=== PATIENT | male | born 1955 | race Caucasian/White ===

== ENCOUNTER 2020-04-19 09:49 | Outpatient (CLI) | payer MEDICARE, SELFPAY ==
[2020-04-19 10:18] LABS: Hematocrit 40.5 % (42.0-52.0); Hemoglobin 13.1 g/dL (14.0-18.0); Mean Corpuscular HGB Conc 32.3 g/dl (32-36); Mean Platelet Volume 9.2 fl (7.4-10.4); Platelet Count Result 203 k/mm3 (150-375); Red Blood Count 4.22 M/mm3 (4.6-6.20); Red Cell Distribution Width 12.1 % (11.5-14.5); White Blood Count 8.8 K/mm3 (4.5-10.0)
[2020-04-19 10:30] LABS: Cholesterol 120 mg/dL (0-200); HDL Direct 55 mg/dL; Triglycerides 122 mg/dL (<150)
[2020-04-19 10:41] LABS: LDL Cholesterol Direct 36 mg/dL
[2020-04-19 10:47] LABS: Creatinine Urine 216.3 mg/dL
[2020-04-19 10:52] LABS: MALB Creatinine Ratio 5.5 mg/g (0-30); Microalbumin Urine Random 11.8 mg/L (0-16.7)
[2020-04-19 11:00] LABS: Prostate Specific Antigen 0.5 ng/mL (< OR = 4.0); Thyroid Stimulating Hormone 0.871 uIU/mL (0.465-4.680)
[2020-04-19 17:31] LABS: Alanine Aminotransferase 15 U/L (4-50); Albumin Level 4.7 g/dL (3.5-5.1); Alkaline Phosphatase 67 U/L (38-126); Anion Gap 7 mmol/L (8-16); Aspartate Amino Transferase 34 U/L (17-59); Bilirubin,Total 0.5 mg/dL (0.2-1.3); Blood Urea Nitrogen 15 mg/dL (9-20); Calcium 9.5 mg/dL (8.4-10.2); Carbon Dioxide 33 mmol/L (22-30); Chloride 103 mmol/L (98-107); Estimated Glomerular Filt Rate > 60; Glucose 114 mg/dL (75-110); Potassium 4.6 mmol/L (3.4-5.0); Sodium 143 mmol/L (137-145)
[2020-04-19 17:35] LABS: Hemoglobin A1C 6.2 % (<5.7)
== END 2020-04-19 17:00 | disposition home or self-care (01) ==
PROVIDERS: PCP Physician Assistant; Visit Provider Physician Assistant
DX: R53.83 Other fatigue (principal); Z12.5 Encounter for screening for malignant neoplasm of prostate; E11.9 Type 2 diabetes mellitus without complications
CPT/HCPCS: 36415; 80053; 80061; 82043; 83036; 84153; 84443; 85027; G0103

== ENCOUNTER 2021-06-13 10:38 | Outpatient (CLI) | payer MEDICARE, SELFPAY ==
--- NOTE | ~2021-06-13 | MR_ITS ---
EXAMINATION: MR lumbar spine wo con DATE: 06/13/2021 11:16 INDICATION: Low back pain TECHNIQUE: Magnetic resonance imaging (MRI) of the lumbar spine was performed without intravenous con trast. Sequences included sagittal T2-weighted FSE, sagittal T2-weighted FS FSE, sagittal T1-weighted FSE, and axial T2-weighted FSE. COMPARISON: 03/19/2018 FINDINGS: Alignment is normal. Vertebral body heights are normal. Mild fibrofatty degenerative endplate changes along the inferior endplates of L4 and L5. Bone marrow signal is otherwise normal. No significant in terval change in mild to moderate disc height loss and annular fissure at L5-S1. Remaining disc heigh ts are normal. The conus medullaris terminates at L1-L2. There is normal signal in the caudal spinal cord. Paravertebral soft tissues are unremarkable. The following disc levels are specifically discuss ed: T12-L1: The disc does not extend beyond the endplate margin. There is left and mild to moderate right facet joint osteoarthritis. There is no neural foraminal stenosis. There is no central canal stenosi s. L1-L2: The disc does not extend beyond the endplate margin. There is mild to moderate bilateral facet joint osteoarthritis. There is no neural foraminal stenosis. There is no central canal stenosis. L2-L3: Disc is minimally bulging. There is mild left and mild to moderate right facet joint osteoarth ritis. There is no neural foraminal stenosis. There is no central canal stenosis. L3-L4: Disc is mildly bulging. There is mild to moderate bilateral facet joint osteoarthritis. There is mild left neural foraminal stenosis. There is no central canal stenosis. L4-L5: Disc is bulging. There is hypertrophy of the ligamentum flavum. There is moderate bilateral f acet joint osteoarthritis. There is mild right and mild to moderate left neural foraminal stenosis. T here is mild central canal stenosis. L5-S1: Disc is bulging. There is moderate left and severe right facet joint osteoarthritis. There is mild left and moderate right neural foraminal stenosis. There is mild central canal stenosis. IMPRESSION: 1. Minimal progression mild upper and moderate lower lumbar spondylosis. Reviewed, dictated and finalized at location A.
== END 2021-06-13 10:39 | disposition home or self-care (01) ==
LOC: ANHIMG 10:40
PROVIDERS: PCP Physician Assistant; Visit Provider Physician Assistant
DX: M54.50 Low back pain, unspecified (principal); M47.896 Other spondylosis, lumbar region
CPT/HCPCS: 72148

== ENCOUNTER 2021-08-11 08:55 | Outpatient (CLI) | payer MEDICARE, SELFPAY ==
--- NOTE | ~2021-08-11 | XR_ITS ---
EXAMINATION: XR lumbar spine 2-3V DATE: 08/11/2021 09:39 INDICATION: Low back pain TECHNIQUE: Anteroposterior and lateral views of the lumbar spine, and cone-down lateral view of the l umbosacral junction were obtained. COMPARISON: MRI, 06/13/2021 FINDINGS: There is no fracture, dislocation, or subluxation. The vertebral body heights are maintaine d. There is moderate loss of intervertebral disc space height at L5-S1. There is severe facet osteoar thritis of the lower lumbar spine. Calcified atherosclerosis is noted. IMPRESSION: 1. Moderate lower lumbar spondylosis without acute findings or significant interval change. Reviewed, dictated and finalized at location A. IMPRESSION: 1. Moderate lower lumbar spondylosis without acute findings or significant inte rval change.
--- NOTE | ~2021-08-11 | XR_ITS ---
XR thoracic spine 3V DATE: 08/11/2021 09:39 INDICATION: Back pain since trailer fell on the patient in 1992 TECHNIQUE: AP, lateral, swimmer views COMPARISON: 11/09/2014 MR thoracic spine FINDINGS: Diffuse osteopenia. There are mild anterior wedge compression fracture deformities, likely old, at T3, T4, T5, T6 and T7. The thoracic pedicles are intact. No recent fracture or bone destruction is evident. There is degener ative spurring of the thoracic spine, most prominent on the right at T9-10. No paraspinal soft tissue thickening. Status post sternotomy. IMPRESSION: Multiple likely old compression fractures of the upper to mid thoracic spine Osteopenia Degenerative spurring Reviewed, dictated and finalized at location B. IMPRESSION: Multiple likely old compression fractures of the upper to mid thora cic spine Osteopenia Degenerative spurring
--- NOTE | ~2021-08-11 | XR_ITS ---
XR_CERV2-3V_CR DATE: 08/11/2021 09:39 INDICATION: Pain in neck and back since trailer fell on the patient in 1992 TECHNIQUE: AP, open-mouth and lateral views COMPARISON: None FINDINGS: Status post sternotomy. Diffuse osteopenia. C1 and C2 are normally aligned and the odontoid process is intact. 1.2 mm anterolisthesis at C3-4. Mild degenerative disc disease at C4-5. Anterior fusion at C5-6. Moderate degenerative disease at C6-7. No fracture or dislocation, locked facet or prevertebral soft tissue swelling is evident. Normal sella turcica. Calcified is noted in the region of bilateral carotid bulbs, proximal internal carotid arteries. IMPRESSION: Osteopenia Status post anterior fusion at C5-6 Moderate degenerative disc disease at C4-5 and C6-7 1.2 mm anterolisthesis at C3-4 Reviewed, dictated and finalized at Location A. Reviewed, dictated and finalized at location B.
== END 2021-08-11 08:56 | disposition home or self-care (01) ==
LOC: CHSIMG 08:59
PROVIDERS: PCP Physician Assistant; Visit Provider Pain Medicine Interventional Pain Medicine
DX: M54.16 Radiculopathy, lumbar region (principal); M54.14 Radiculopathy, thoracic region; M54.12 Radiculopathy, cervical region; G89.4 Chronic pain syndrome
CPT/HCPCS: 72040; 72072; 72100

== ENCOUNTER 2021-11-22 08:41 | Outpatient (CLI) | payer MEDICARE, SELFPAY ==
[2021-11-22 08:53] LABS: Basophils Absolute Auto 0.03 K/mm3 (0.00-0.10); Basophils Percent Auto 0.5 % (0.0-1.0); Eosinophils Absolute Auto 0.16 K/mm3 (0.02-0.50); Eosinophils Percent Auto 2.4 % (1.0-6.0); Hematocrit 38.5 % (37.0-46.0); Hemoglobin 12.7 g/dL (12.4-15.3); Immature Granulocyte Absolute 0.04 K/mm3 (0.00-0.00); Immature Granulocyte Percent A 0.6 % (0.0-0.0); Lymphocytes Absolute Auto 2.31 K/mm3 (1.10-4.50); Lymphocytes Percent Auto 35.1 % (18.0-42.0); Mean Corpuscular Hemoglobin 31.5 pg (27.0-31.0); Mean Corpuscular Volume 95.5 fL (78.0-102.0); Mean Platelet Volume 9.4 fl (8.7-11.0); Monocytes Absolute Auto 0.65 K/mm3 (0.10-0.90); Monocytes Percent Auto 9.9 % (2.0-11.0); Neutrophils Absolute Auto 3.4 K/mm3 (1.7-7.2); Neutrophils Percent Auto 51.5 % (50.0-70.0); Platelet Count Result 180 K/mm3 (150-420); Red Blood Count 4.03 M/mm3 (4.70-6.10); Red Cell Distribution Width 12.5 % (11.6-14.4); White Blood Count 6.6 K/mm3 (4.8-10.8)
[2021-11-22 09:01] LABS: Creatinine Urine 185.74 mg/dL (40-278); MALB Creatinine Ratio 8.7 mg/g (0-30); Microalbumin Urine Random 16.2 mg/L
[2021-11-22 09:03] LABS: Hemoglobin A1C 6.3 % (<5.7)
[2021-11-22 09:51] LABS: Alanine Aminotransferase 23 U/L (16-63); Alkaline Phosphatase 73 U/L (46-116); Anion Gap 4 mmol/L (8-16); Aspartate Amino Transferase 16 U/L (15-37); Bilirubin,Total 0.4 mg/dL (0.00-1.00); Blood Urea Nitrogen 19 mg/dL (7-18); Calcium 8.7 mg/dL (8.5-10.1); Carbon Dioxide 31 mmol/L (21-32); Chloride 103 mmol/L (98-108); Cholesterol 197 mg/dL (0-200); Estimated Glomerular Filt Rate > 60; Folic Acid 19.8 ng/mL (8.6->20); Glucose 119 mg/dL (70-99); HDL Direct 71 mg/dL (40-60); LDL Cholesterol Calculated 116 mg/dL (<130); Osmolality Calculated 289 mOsm/kg (285-295); Potassium 4.7 mmol/L (3.5-5.1); Prostate Specific Antigen 0.6 ng/mL (< OR = 4.0); Sodium 138 mmol/L (136-145); Thyroid Stimulating Hormone 0.97 uIU/mL (0.36-3.74); Total Protein 7.5 g/dL (6.4-8.2); Triglycerides 49 mg/dL (0-150); Vitamin B12 191 pg/mL (193-986)
== END 2021-11-22 08:42 | disposition home or self-care (01) ==
LOC: CHSLAB 08:43
PROVIDERS: PCP Physician Assistant; Visit Provider Physician Assistant
DX: R53.83 Other fatigue (principal); E11.9 Type 2 diabetes mellitus without complications; E78.00 Pure hypercholesterolemia, unspecified; Z12.5 Encounter for screening for malignant neoplasm of prostate
CPT/HCPCS: 36415; 80053; 80061; 82043; 82607; 82746; 83036; 84153; 84443; 85025; G0103

== ENCOUNTER 2022-04-09 09:57 | Outpatient (CLI) | payer MEDICARE, SELFPAY ==
--- NOTE | ~2022-04-09 | XR_ITS ---
EXAMINATION:XR_CERV2-3V_CR DATE: 04/09/2022 10:22 INDICATION: Neck pain TECHNIQUE: AP, lateral, and odontoid views of the cervical spine are provided. COMPARISON: 08/11/2021 FINDINGS: There is 1 mm of unchanged anterolisthesis of C3 on C4. The odontoid is intact. No fracture is identified. The vertebral body heights are normal. There are changes of anterior fusion at C5-6. There is moderate loss of intervertebral disc space height at C4-5 and C6-7. Xpzt-ks-jqprgwjd multile katy facet and uncovertebral joint osteoarthritis is noted. Median sternotomy wires and mediastinal alcantara rgical clips are seen, likely from prior coronary artery bypass grafting. Surgical clips project in t he left lung apex. IMPRESSION: 1. Changes of anterior fusion at C5-C6 with otherwise mild cervical spondylosis. No significant díaz e. Reviewed, dictated and finalized at location B. ENT AMBASSADOR IMPRESSION: 1. Changes of anterior fusion at C5-C6 with otherwise mild cervical spondylosis . No significant change.
== END 2022-04-09 09:58 | disposition home or self-care (01) ==
LOC: CHSIMG 10:00
PROVIDERS: PCP Physician Assistant; Visit Provider Pain Medicine Interventional Pain Medicine
DX: M54.12 Radiculopathy, cervical region (principal); Z98.1 Arthrodesis status; M43.02 Spondylolysis, cervical region
CPT/HCPCS: 72040

== ENCOUNTER 2022-06-18 08:29 | Outpatient (CLI) | payer MEDICARE, SELFPAY ==
[2022-06-18 09:02] LABS: Creatinine Urine 111.73 mg/dL (40-278); MALB Creatinine Ratio 11.6 mg/g (0-30); Microalbumin Urine Random < 13.0 mg/L
[2022-06-18 09:04] LABS: Hemoglobin A1C 6.1 % (<5.7)
[2022-06-18 09:31] LABS: Anion Gap 7 mmol/L (8-16); Blood Urea Nitrogen 16 mg/dL (7-18); Calcium 8.4 mg/dL (8.5-10.1); Carbon Dioxide 32 mmol/L (21-32); Chloride 104 mmol/L (98-108); Cholesterol 178 mg/dL (0-200); Estimated Glomerular Filt Rate > 60; Glucose 106 mg/dL (70-99); HDL Direct 62 mg/dL (40-60); LDL Cholesterol Calculated 95 mg/dL (<130); NT Pro B Type Natriuretic Pept 130 pg/mL (0-125); Osmolality Calculated 297 mOsm/kg (285-295); Potassium 4.1 mmol/L (3.5-5.1); Sodium 143 mmol/L (136-145); Triglycerides 103 mg/dL (0-150)
[2022-06-22 19:57] LABS: CRP, High Sensitivity 1.7 mg/L (***)
== END 2022-06-18 08:30 | disposition home or self-care (01) ==
LOC: CHSLAB 08:32
PROVIDERS: PCP Physician Assistant; Visit Provider Internal Medicine Cardiovascular Disease
DX: E11.9 Type 2 diabetes mellitus without complications (principal); I70.8 Atherosclerosis of other arteries; Z82.3 Family history of stroke; Z95.5 Presence of coronary angioplasty implant and graft; I25.810 Atherosclerosis of coronary artery bypass graft(s) without angina pectoris; I35.1 Nonrheumatic aortic (valve) insufficiency; I87.2 Venous insufficiency (chronic) (peripheral); I25.10 Atherosclerotic heart disease of native coronary artery without angina pectoris; E78.5 Hyperlipidemia, unspecified; I89.0 Lymphedema, not elsewhere classified; R60.0 Localized edema; I10 Essential (primary) hypertension; R06.02 Shortness of breath; R00.2 Palpitations
CPT/HCPCS: 36415; 80048; 80061; 82043; 83036; 83880; 86141

== ENCOUNTER 2022-08-07 10:19 | Outpatient (CLI) | payer MEDICARE, SELFPAY ==
--- NOTE | ~2022-08-07 | XR_ITS ---
Thoracic spine: Clinical Indication: Back pain AP and lateral views were performed. COMPARISON: 08/11/2021 There are compression deformities of T6 and T7. No subluxation evident. There are scattered mild dege nerative disc changes throughout the thoracic spine. Paravertebral soft tissues appear normal. Impression: Compression deformities of T6 and T7, probably similar to prior exam. Reviewed, dictated and finalized at location . Impression: Compression deformities of T6 and T7, probably similar to prior exam.
--- NOTE | ~2022-08-07 | XR_ITS ---
Cervical Spine: AP, lateral, open-mouth views Clinical History: Pain Findings: The normal lordotic curve is maintained. No fracture or subluxation identified. There is mo derate degenerative disc change at C4-C5. There is fusion across the C5-C6 disc space. There is moder ate facet arthropathy throughout most of the cervical spine. Pre-vertebral soft tissues are unremarka ble. Impression: Moderate degenerative spondylosis, as above. Reviewed, dictated and finalized at location M. Impression: Moderate degenerative spondylosis, as above.
--- NOTE | ~2022-08-07 | XR_ITS ---
Lumbosacral Spine: AP and lateral views Clinical History: Pain COMPARISON: 08/11/2021 Findings: The normal lordotic curve is maintained. No fracture identified. There is minimal grade 1 a nterolisthesis of L4 over L5, similar to prior exam. There is moderate facet arthropathy at L4-L5 and L5-S1. The sacroiliac joints are normally outlined. Impression: Minimal grade 1 anterolisthesis of L4 over L5, unchanged. Mild degenerative changes, similar to prior exam. Reviewed, dictated and finalized at location M. Impression: Minimal grade 1 anterolisthesis of L4 over L5, unchanged. Mild degenerative changes, similar to prior exam.
== END 2022-08-07 10:20 | disposition home or self-care (01) ==
LOC: CHSIMG 10:22
PROVIDERS: PCP Physician Assistant; Visit Provider Pain Medicine Interventional Pain Medicine
DX: M25.569 Pain in unspecified knee (principal); M54.14 Radiculopathy, thoracic region; M54.12 Radiculopathy, cervical region; M43.16 Spondylolisthesis, lumbar region; M48.54XA Collapsed vertebra, not elsewhere classified, thoracic region, initial encounter for fracture; M43.02 Spondylolysis, cervical region
CPT/HCPCS: 72040; 72072; 72100

== ENCOUNTER 2022-10-19 07:44 | Outpatient (CLI) | payer MEDICARE, SELFPAY ==
[2022-10-19 08:01] LABS: Basophils Absolute Auto 0.03 K/mm3 (0.00-0.10); Basophils Percent Auto 0.5 % (0.0-1.0); Eosinophils Absolute Auto 0.17 K/mm3 (0.02-0.50); Hematocrit 37.9 % (37.0-46.0); Hemoglobin 12.5 g/dL (12.4-15.3); Immature Granulocyte Absolute 0.03 K/mm3 (0.00-0.00); Immature Granulocyte Percent A 0.5 % (0.0-0.0); Lymphocytes Absolute Auto 2.56 K/mm3 (1.10-4.50); Lymphocytes Percent Auto 45.6 % (18.0-42.0); Mean Corpuscular Hemoglobin 31.6 pg (27.0-31.0); Mean Corpuscular Volume 95.9 fL (78.0-102.0); Mean Platelet Volume 9.3 fl (8.7-11.0); Monocytes Absolute Auto 0.55 K/mm3 (0.10-0.90); Monocytes Percent Auto 9.8 % (2.0-11.0); Neutrophils Absolute Auto 2.3 K/mm3 (1.7-7.2); Neutrophils Percent Auto 40.6 % (50.0-70.0); Platelet Count Result 182 K/mm3 (150-420); Red Blood Count 3.95 M/mm3 (4.70-6.10); Red Cell Distribution Width 12.6 % (11.6-14.4); White Blood Count 5.6 K/mm3 (4.8-10.8)
[2022-10-19 08:15] LABS: INR 0.9; Prothrombin Time 10.2 Seconds (9.50-12.10)
[2022-10-19 08:33] LABS: Anion Gap 7 mmol/L (8-16); Blood Urea Nitrogen 12 mg/dL (7-18); Calcium 8.5 mg/dL (8.5-10.1); Carbon Dioxide 31 mmol/L (21-32); Chloride 104 mmol/L (98-108); Cholesterol 211 mg/dL (0-200); Estimated Glomerular Filt Rate > 60; Glucose 99 mg/dL (70-99); HDL Direct 56 mg/dL (40-60); LDL Cholesterol Calculated 122 mg/dL (<130); Osmolality Calculated 293 mOsm/kg (285-295); Potassium 4.6 mmol/L (3.5-5.1); Sodium 142 mmol/L (136-145); Triglycerides 166 mg/dL (0-150)
== END 2022-10-19 07:45 | disposition home or self-care (01) ==
LOC: CHSLAB 07:47
PROVIDERS: PCP Physician Assistant; Visit Provider Internal Medicine Cardiovascular Disease
DX: I25.810 Atherosclerosis of coronary artery bypass graft(s) without angina pectoris (principal); I87.2 Venous insufficiency (chronic) (peripheral); E78.5 Hyperlipidemia, unspecified; I35.1 Nonrheumatic aortic (valve) insufficiency; I10 Essential (primary) hypertension
CPT/HCPCS: 36415; 80048; 80061; 85025; 85610

== ENCOUNTER 2022-12-26 08:13 | Outpatient (CLI) | payer MEDICARE, SELFPAY ==
[2022-12-26 08:25] LABS: Basophils Absolute Auto 0.02 K/mm3 (0.00-0.10); Basophils Percent Auto 0.3 % (0.0-1.0); Eosinophils Absolute Auto 0.11 K/mm3 (0.02-0.50); Eosinophils Percent Auto 1.7 % (1.0-6.0); Hematocrit 40.4 % (37.0-46.0); Hemoglobin 13.2 g/dL (12.4-15.3); Immature Granulocyte Absolute 0.03 K/mm3 (0.00-0.00); Immature Granulocyte Percent A 0.5 % (0.0-0.0); Lymphocytes Absolute Auto 2.57 K/mm3 (1.10-4.50); Mean Corpuscular HGB Conc 32.7 g/dL (32.0-36.0); Mean Corpuscular Hemoglobin 31.3 pg (27.0-31.0); Mean Corpuscular Volume 95.7 fL (78.0-102.0); Mean Platelet Volume 9.2 fl (8.7-11.0); Monocytes Absolute Auto 0.59 K/mm3 (0.10-0.90); Monocytes Percent Auto 9.2 % (2.0-11.0); Neutrophils Absolute Auto 3.1 K/mm3 (1.7-7.2); Neutrophils Percent Auto 48.3 % (50.0-70.0); Platelet Count Result 170 K/mm3 (150-420); Red Blood Count 4.22 M/mm3 (4.70-6.10); Red Cell Distribution Width 12.4 % (11.6-14.4); White Blood Count 6.4 K/mm3 (4.8-10.8)
[2022-12-26 08:40] LABS: Hemoglobin A1C 6.2 % (<5.7)
[2022-12-26 09:24] LABS: Alanine Aminotransferase 13 U/L (16-63); Albumin Level 4.3 g/dL (3.4-5.0); Alkaline Phosphatase 62 U/L (46-116); Anion Gap 10 mmol/L (8-16); Aspartate Amino Transferase < 10 U/L (15-37); Bilirubin,Total 0.4 mg/dL (0.00-1.00); Blood Urea Nitrogen 14 mg/dL (7-18); Calcium 9.1 mg/dL (8.5-10.1); Carbon Dioxide 29 mmol/L (21-32); Chloride 105 mmol/L (98-108); Cholesterol 205 mg/dL (0-200); Estimated Glomerular Filt Rate > 60; Folic Acid 15.8 ng/mL (8.6->20); Glucose 106 mg/dL (70-99); HDL Direct 63 mg/dL (40-60); LDL Cholesterol Calculated 112 mg/dL (<130); Osmolality Calculated 298 mOsm/kg (285-295); Potassium 4.5 mmol/L (3.5-5.1); Prostate Specific Antigen 0.6 ng/mL (< OR = 4.0); Sodium 144 mmol/L (136-145); Thyroid Stimulating Hormone 1.23 uIU/mL (0.36-3.74); Total Protein 7.4 g/dL (6.4-8.2); Triglycerides 149 mg/dL (0-150)
[2022-12-26 10:05] LABS: Vitamin B12 121 pg/mL (193-986)
== END 2022-12-26 08:14 | disposition home or self-care (01) ==
LOC: CHSLAB 08:14
PROVIDERS: PCP Physician Assistant; Visit Provider Physician Assistant
DX: E78.00 Pure hypercholesterolemia, unspecified (principal); E11.9 Type 2 diabetes mellitus without complications; E53.8 Deficiency of other specified B group vitamins; Z12.5 Encounter for screening for malignant neoplasm of prostate; R53.83 Other fatigue
CPT/HCPCS: 36415; 80053; 80061; 82607; 82746; 83036; 84153; 84443; 85025; G0103

== ENCOUNTER 2023-05-01 07:02 | Outpatient (CLI) | payer MEDICARE, SELFPAY ==
[2023-05-01 08:15] LABS: Anion Gap 10 mmol/L (8-16); Blood Urea Nitrogen 17 mg/dL (7-18); Calcium 8.4 mg/dL (8.5-10.1); Carbon Dioxide 29 mmol/L (21-32); Chloride 102 mmol/L (98-108); Estimated Glomerular Filt Rate 56; Glucose 122 mg/dL (70-99); Osmolality Calculated 294 mOsm/kg (285-295); Potassium 4.4 mmol/L (3.5-5.1); Sodium 141 mmol/L (136-145)
== END 2023-05-01 07:03 | disposition home or self-care (01) ==
LOC: CHSLAB 07:07
PROVIDERS: PCP Physician Assistant
DX: I34.0 Nonrheumatic mitral (valve) insufficiency (principal)
CPT/HCPCS: 36415; 80048

== ENCOUNTER 2023-08-08 08:43 | Outpatient (CLI) | payer MEDICARE, SELFPAY ==
--- NOTE | ~2023-08-08 | XR_ITS ---
Lumbosacral Spine: AP and lateral views Clinical History: Pain Findings: The normal lordotic curve is maintained. The vertebral bodies and posterior elements are i ntact. The intervertebral disc spaces are preserved. There is advanced facet arthropathy at L4-L5 an d L5-S1. The sacroiliac joints are normally outlined. Impression: Facet arthropathy at the lower lumbar spine, as detailed above. Reviewed, dictated and finalized at location M. Impression: Facet arthropathy at the lower lumbar spine, as detailed above.
--- NOTE | ~2023-08-08 | XR_ITS ---
Thoracic spine: Clinical Indication: Radiculopathy AP and lateral views were performed. Probable minimal wedging deformities of T5. There is normal alignment of the vertebrae. There is mil d to moderate degenerative disc narrowing throughout the thoracic spine. There is mild to moderate fa cet arthropathy in the thoracic spine. Paravertebral soft tissues are unremarkable. Evidence of cardi ac valve replacement. . Impression: [id number] degenerative spondylosis of the thoracic spine, as above. Minimal anterior wedging deformity of T5. Reviewed, dictated and finalized at location M. Impression: Fndi-tn-[id number] degenerative spondylosis of the thoracic spine, as above. Minimal anterior wedging deformity of T5.
== END 2023-08-08 08:44 | disposition home or self-care (01) ==
LOC: CHSIMG 08:46
PROVIDERS: PCP Internal Medicine; Visit Provider Pain Medicine Interventional Pain Medicine
DX: M54.17 Radiculopathy, lumbosacral region (principal); M54.14 Radiculopathy, thoracic region; M12.88 Other specific arthropathies, not elsewhere classified, other specified site; M43.04 Spondylolysis, thoracic region; M48.54XA Collapsed vertebra, not elsewhere classified, thoracic region, initial encounter for fracture
CPT/HCPCS: 72072; 72100

== ENCOUNTER 2023-08-13 09:53 | Outpatient (CLI) | payer MEDICARE, SELFPAY ==
[2023-08-13 10:23] LABS: Basophils Absolute Auto 0.03 K/mm3 (0.00-0.10); Basophils Percent Auto 0.4 % (0.0-1.0); Eosinophils Percent Auto 1.4 % (1.0-6.0); Hemoglobin 11.5 g/dL (12.4-15.3); Immature Granulocyte Absolute 0.05 K/mm3 (0.00-0.00); Immature Granulocyte Percent A 0.7 % (0.0-0.0); Lymphocytes Percent Auto 35.4 % (18.0-42.0); Mean Corpuscular HGB Conc 30.3 g/dL (32-36); Mean Corpuscular Volume 89.2 fL (78.0-102.0); Mean Platelet Volume 9.1 fl (8.7-11.0); Monocytes Absolute Auto 0.52 K/mm3 (0.10-0.90); Monocytes Percent Auto 7.4 % (2.0-11.0); Neutrophils Absolute Auto 3.86 K/mm3 (1.70-7.20); Neutrophils Percent Auto 54.7 % (50.0-70.0); Platelet Count Result 129 K/mm3 (150-420); Red Blood Count 4.26 M/mm3 (4.70-6.10); Red Cell Distribution Width 15.9 % (11.6-14.4); White Blood Count 7.1 K/mm3 (4.8-10.8)
[2023-08-13 11:58] LABS: Alanine Aminotransferase 44 U/L (16-63); Albumin Level 3.7 g/dL (3.4-5.0); Alkaline Phosphatase 148 U/L (46-116); Anion Gap 9 mmol/L (4-12); Aspartate Amino Transferase 29 U/L (15-37); Bilirubin,Total 0.5 mg/dL (0.00-1.00); Blood Urea Nitrogen 27 mg/dL (7-18); Calcium 8.6 mg/dL (8.5-10.1); Carbon Dioxide 31 mmol/L (21-32); Chloride 97 mmol/L (98-108); Estimated Glomerular Filt Rate 46; Glucose 113 mg/dL (70-99); Osmolality Calculated 290 mOsm/kg (285-295); Potassium 4.4 mmol/L (3.5-5.1); Sodium 137 mmol/L (136-145); Total Protein 7.5 g/dL (6.4-8.2); Vitamin B12 249 pg/mL (193-986)
== END 2023-08-13 09:54 | disposition home or self-care (01) ==
LOC: CHSLAB 09:54
PROVIDERS: PCP Internal Medicine; Visit Provider Internal Medicine
DX: E78.00 Pure hypercholesterolemia, unspecified (principal); E53.8 Deficiency of other specified B group vitamins; E08.42 Diabetes mellitus due to underlying condition with diabetic polyneuropathy
CPT/HCPCS: 36415; 80053; 82607; 83036; 85025

== ENCOUNTER 2024-03-11 08:01 | Outpatient (CLI) | payer MEDICARE, MEDICAID, SELFPAY ==
--- NOTE | ~2024-03-11 | XR_ITS ---
XR chest 2V Ordering provider: Giovanni Caceres DO History: 69 years Male with . CHEST TIGHTNESS,CONGESTION,THOMPSON,ACUTE . Comparison: May 19, 2013 FINDINGS: MEDIASTINUM: The cardiac silhouette is not enlarged. Postoperative changes in the mediastinum. LUNGS: No pneumothorax. Soft tissue density is seen in the right upper lobe laterally which is pleura l-based and may represent a mass. CT evaluation advised. Minimal right pleural effusion. Minimal opac ification in the right lung base and in the left perihilar and left lower lobe areas. Small granuloma in the right upper lobe unchanged. OTHER: No free air under the diaphragm. Degenerative changes of the spine. IMPRESSION: Possible pleural-based mass in the right upper lobe. CT evaluation advised. Left perihilar and bibasilar opacification suggestive of pneumonia. Clinical correlation advised. Reviewed, dictated and finalized at location A. PLANT OPERATOR IMPRESSION: Possible pleural-based mass in the right upper lobe. CT evaluation advised. Left perihilar and bibasilar opacification suggestive of pneumonia. Clinical co rrelation advised.
[2024-03-11 08:22] LABS: Basophils Absolute Auto 0.03 K/mm3 (0.00-0.10); Basophils Percent Auto 0.4 % (0.0-1.0); Eosinophils Absolute Auto 0.11 K/mm3 (0.02-0.50); Eosinophils Percent Auto 1.4 % (1.0-6.0); Hematocrit 36.1 % (37.0-46.0); Hemoglobin 11.4 g/dL (12.4-15.3); Immature Granulocyte Absolute 0.05 K/mm3 (0.00-0.00); Immature Granulocyte Percent A 0.6 % (0.0-0.0); Lymphocytes Absolute Auto 2.43 K/mm3 (1.10-4.50); Lymphocytes Percent Auto 31.2 % (18.0-42.0); Mean Corpuscular HGB Conc 31.6 g/dL (32-36); Mean Corpuscular Hemoglobin 27.6 pg (27.0-31.0); Mean Corpuscular Volume 87.4 fL (78.0-102.0); Mean Platelet Volume 8.6 fl (8.7-11.0); Monocytes Absolute Auto 0.72 K/mm3 (0.10-0.90); Monocytes Percent Auto 9.2 % (2.0-11.0); Neutrophils Absolute Auto 4.45 K/mm3 (1.70-7.20); Neutrophils Percent Auto 57.2 % (50.0-70.0); Platelet Count Result 214 K/mm3 (150-420); Red Blood Count 4.13 M/mm3 (4.70-6.10); Red Cell Distribution Width 14.1 % (11.6-14.4); White Blood Count 7.8 K/mm3 (4.8-10.8)
[2024-03-11 08:35] LABS: Hemoglobin A1C 6.8 % (<5.7)
[2024-03-11 08:46] LABS: Creatinine Urine 162.28 mg/dL (40-278); MALB Creatinine Ratio 33.2 mg/g (0-30); Microalbumin Urine Random 53.9 mg/L
[2024-03-11 09:37] LABS: Alanine Aminotransferase 33 U/L (16-63); Albumin Level 3.2 g/dL (3.4-5.0); Alkaline Phosphatase 213 U/L (46-116); Anion Gap 10 mmol/L (4-12); Aspartate Amino Transferase 30 U/L (15-37); Bilirubin,Total 0.5 mg/dL (0.00-1.00); Blood Urea Nitrogen 16 mg/dL (7-18); Calcium 8.5 mg/dL (8.5-10.1); Carbon Dioxide 29 mmol/L (21-32); Chloride 100 mmol/L (98-108); Cholesterol 120 mg/dL (0-200); Estimated Glomerular Filt Rate 57; Ferritin 288 ng/mL (26-388); Glucose 119 mg/dL (70-99); HDL Direct 50 mg/dL (40-60); Iron 34 ug/dL (65-175); LDL Cholesterol Calculated 56 mg/dL (<130); Osmolality Calculated 290 mOsm/kg (285-295); Percent Iron Saturation 10 % (12-57); Potassium 4.2 mmol/L (3.5-5.1); Sodium 139 mmol/L (136-145); Thyroid Stimulating Hormone 1.98 uIU/mL (0.36-3.74); Total Protein 7.3 g/dL (6.4-8.2); Triglycerides 71 mg/dL (0-150); Vitamin B12 284 pg/mL (193-986)
== END 2024-03-11 08:02 | disposition home or self-care (01) ==
LOC: CHSLAB 08:05
PROVIDERS: PCP Internal Medicine; Visit Provider Internal Medicine
DX: D64.9 Anemia, unspecified (principal); N18.9 Chronic kidney disease, unspecified; R74.8 Abnormal levels of other serum enzymes; E08.42 Diabetes mellitus due to underlying condition with diabetic polyneuropathy; E78.5 Hyperlipidemia, unspecified; Z51.81 Encounter for therapeutic drug level monitoring; E53.8 Deficiency of other specified B group vitamins; R06.09 Other forms of dyspnea
CPT/HCPCS: 36415; 71046; 80053; 80061; 82043; 82607; 82728; 83036; 83540; 83550; 84443; 85025

== ENCOUNTER 2024-03-18 13:08 | Outpatient (CLI) | payer MEDICARE, MEDICAID, SELFPAY ==
--- NOTE | ~2024-03-18 | CT_ITS ---
EXAMINATION:CT chest high resolution wo ma DATE: 03/18/2024 13:31 INDICATION: Midsternal chest pain. TECHNIQUE: Computed tomography (CT) of the chest was performed without intravenous contrast. Automate d exposure control and iterative reconstruction technique were employed. The dose-length product (DLP ) was 150.31 mGy-cm. COMPARISON: Chest 2 views 03/11/2024 FINDINGS: There is mild atelectasis in the lungs. There is a small loculated right pleural effusion w ith pleural thickening. Calcified right lung nodules and calcified right hilar and mediastinal lymph nodes are consistent with old granulomatous disease. The heart size is normal. There are changes of m itral and aortic valve replacements. No pericardial effusion. There are changes of coronary artery by pass grafting. Calcifications in the liver and spleen are consistent with old granulomatous disease. There are old healed right rib fractures. There is mild chronic height loss of multiple vertebral bod ies. There is mild thoracic spondylosis. IMPRESSION: 1. Small loculated right pleural effusion. Reviewed, dictated and finalized at location A. UM TECHNICIAN
== END 2024-03-18 13:09 | disposition home or self-care (01) ==
LOC: CHSIMG 13:10
PROVIDERS: PCP Internal Medicine; Visit Provider Internal Medicine
DX: R91.8 Other nonspecific abnormal finding of lung field (principal); J90 Pleural effusion, not elsewhere classified
CPT/HCPCS: 71250

== ENCOUNTER 2024-10-20 09:56 | Outpatient (CLI) | payer MEDICARE, MEDICAID, SELFPAY ==
--- OUTSIDE RECORDS SUMMARY | 2024-10-20 10:04 | XMS_ITS | Clinical Summary ---
Author Organization [facility] Address [address] [place] [address] Care Team Providers Care Finishing Trimmer Name Role Phone Efrain Bruno Primary Care Provider Edmund Villalba MD Unavailable [phone] Elmer Wiseman MD, Yuri Bird Unavailable [phone] Allergies No known active allergies Medications tamsulosin (FLOMAX) 0.4 mg extended release capsule Take 1 capsule (0.4 mg total) by mouth daily Active aspirin 81 mg enteric coated tablet Take 1 tablet (81 mg total) by mouth daily 5 Active oxyCODONE-acetami nophen (PERCOCET) 5-325 mg per tablet Take 1 tablet by mouth 3 (three) times a day as needed 3 Active ALPRAZolam (XANAX) 0.5 mg tablet Take 1 tablet (0.5 mg total) by mouth nightly 3 Active cyclobenzaprine (FLEXERIL) 10 mg tablet Take 1 tablet (10 mg total) by mouth 2 (two) times a day as needed 3 Active famotidine (PEPCID) 20 mg tablet Take 1 tablet (20 mg total) by mouth 2 (two) times a day Active fluticasone propionate (FLONASE) 50 mcg/actuation nasal spray Administer 2 sprays into each nostril daily as needed 3 Active albuterol HFA (PROVENTIL HFA,VENTOLIN HFA,PROAIR HFA) 90 mcg/actuation inhaler Inhale 2 puffs every 4 (four) hours as needed Active apixaban (ELIQUIS) 5 mg tabletIndications :atrial fibrillation Take 1 tablet (5 mg total) by mouth every 12 (twelve) hours 60 tablet 1 3 Active atorvastatin (LIPITOR) 40 mg tablet Take 1 tablet (40 mg total) by mouth nightly 30 tablet 11 3 Active furosemide (LASIX) 40 mg tablet Take 1 tablet (40 mg total) by mouth daily 30 tablet 3 Active polyethylene glycol (MIRALAX) 17 gram/dose bulk powderIndications :constipation Take 17 g by mouth daily as needed (constipation) 3 Active metoprolol tartrate (LOPRESSOR) 25 mg immediate release tablet Take 0.5 tablets (12.5 mg total) by mouth 2 (two) times a day 30 tablet 1 3 Active Active Problems Problem Noted Date Diagnosed Date Severe mitral regurgitation 03/14/2023 Mitral valve insufficiency 02/12/2023 Low back pain 09/21/2016 Multiple vessel coronary artery disease 03/16/20 14 Encounters Date Type Department Care Team Description 08/11/2024 10:15 AM CDT Office Visit [facility] [address] [place] [phone] Edmund Villalba MD S/P MVR (mitral valve replacement) (Primary Dx) from Last 3 Months Surgical History Surgery Date Site/Laterality Comments ND RPLCMT PROST AORTIC VALVE OPEN XCP HOMOGRF/STENT Aortic Valve Replacement - (Added by Conv) ND ARTHRD ANT INTERBODY MIN DSC CRV BELOW C2 Cervical Vertebral Fusion - (Added by TW Conv) CORONARY ARTERY BYPASS GRAFT Previous Coronary Artery Bypass - (Added by TW Conv) INGUINAL HERNIA REPAIR Inguinal Hernia Repair - (Added by Conv) VARICOSE VEIN SURGERY venoseal Medical History Medical History Date Comments Lymphedema, not elsewhere classified Lymphedema - (Added by TW Conv) Anxiety disorder Anxiety - (Adde d by Conv) Chronic kidney disease CKD 2 Coronary artery disease Hyperlipidemia GERD (gastroesophageal reflux disease) CHF (congestive heart failure) (HCC) Neuropathy Asthma allergies Type 2 diabetes mellitus (HCC) d iet controlled Chronic back pain Hypertension BPH (benign prostatic hyperplasia) Arthritis Family History Medical History Relation Name Comments Heart attack Brother 1 Stroke Brother 1 Family history of cerebrovascular accident (CVA) - (Added by TW Conv) Vision loss Brother 2 drug overdose Heart attack Father Family history of myocardial infarction - (Added by TW Conv) Stroke Mother Family history of cerebrovascular accident (CVA) - (Added by TW Conv) Stroke Other 1 Family history of cerebrovascular accident (CVA) - (Added by TW Conv) Diabetes Other 2 Family history of diabetes mellitus - (Added by TW Conv) Hypertension Other 3 Family history of hypertension - (Added by TW Conv) Heart disease Other 4 Family history of cardiac disorder - (Added by TW Conv) Relation Name Status Comments Brother 1 Brother 2 Father Mother Other 1 Other 2 Other 3 Other 4 Sister Alive Social History Tobacco Use Types Packs/Day Years Used Date Smoking Tobacco: Former Tobacco Cessation:Counseling Given: Not Answered OASIS D0700: Social Isolation Answer Da te Recorded Frequency of experiencing loneliness or isolatio n Never 04/18/2023 OASIS A1250: Transportation Answer Date Recorded Lack of Transportation (Medical) No 04/18/2023 Lack of Transportation (Non-Medical) No 04/18/2023 Patient Unable or Declines to Respond No 04/18/2023 OASIS B1300: Health Literacy Answer Ronaldo e Recorded Frequency of needing help to read materials from doctor or pharmacy Sometimes 04/18/2023 [facility] Utilities Answer Date Recorded In the past 12 months has th e [place], gas, oil, or water [employer] threatened to shut off services in your home? No 03/15/2023 Social Connection and Isolat ion Panel [NHANES] Answer Date Recorded In a typical week, how many times do you talk on the phone with family, friends, or neighbors? More than three times a week 03/15/2023 How often do you get togethe r with friends or relatives? More than three times a week 03/15/2023 How often do you attend chur ch or cheondoism services? Never 03/15/2023 Do you belong to any clubs o r organizations such as spiritism groups, unions, fraternal or athletic groups, or school groups? No 03/15/2023 How often do you attend meet ings of the clubs or organizations you belong to? Never 03/15/2023 Are you , , di vorced, , never , or living with a partner? 03/15/2023 AUDIT-C Answer Date Recorded Frequency of Alcohol Consumption Not on file 03/07/2023 Q2: How many drinks containi ng alcohol do you have on a typical day when you are drinking? Patient does not drink 3 Frequency of Binge Drinking Not on file 09/2022 Overall Financial Resource Strain (CARDIA) Answe r Date Recorded How hard is it for you to pa y for the very basics like food, housing, medical care, and heating? Not hard at all 03/15/2023 Hunger Vital Sign Answer Date Recorded Within the past 12 months, y ou worried that your food would run out before you got the money to buy more. Never true 03/15/20 23 Within the past 12 months, t he food you bought just didn't last and you didn't have money to get more. Never true 03/15/2023 PRAPARE - Transportation Answer Date Re corded In the past 12 months, has l ack of transportation kept you from medical appointments or from getting medications? No 03/01 In the past 12 months, has l ack of transportation kept you from meetings, work, or from getting things needed for daily living? No 03/15/2023 Housing Stability Vital Sign Answer Ronaldo e Recorded In the last 12 months, was t here a time when you were not able to pay the mortgage or rent on time? No 03/15/2023 In the last 12 months, how many places have you lived? 1 03/15/2023 In the last 12 months, was t here a time when you did not have a steady place to sleep or slept in a skilled nursing (including now)? No 03/15/2023 Personal Safety Answer Date Recorded Have you ever been in or are you currently in a harmful physical or emotional relationship or is someone making you feel afraid or unsafe? Denies 03/17/2023 Sex and Gender Information Value Date Recorded Sex Assigned at Not on file Legal Sex Male 10:33 PM SOURCING INTERN Gender Identity Not on file Sexual Orientation Not on file Obstetrics History Last Filed Vital Signs Vital Sign Reading Time Taken Comments Blood Pressure 122/76 08/11/2024 10:40 AM CDT Pulse 56 08/11/2024 10:40 AM CDT Temperature 36.7 C (98 F) 04/18/2023 10:29 AM SOURCING INTERN Respiratory Rate 16 08/11/2024 10:40 AM CDT Oxygen Saturation 96% 08/11/2024 10:40 AM CDT Inhaled Oxygen Concentration - - Weight 68.5 kg (151 lb) 08/11/2024 10:40 AM CDT Height 167.6 cm (5' 6) 08/11/2024 10:40 AM CDT Body Mass Index 24.37 08/11/2024 10:40 AM CDT Plan of Treatment Health Maintenance Due Date Last Done Comments Colon Cancer Screening-Colonoscopy 1955 Depression Screening 1955 Hepatitis C Screening 1955 Prostate Cancer Screening-PSA 1955 DTaP/Tdap/Td Vaccine (1 - Tdap) 1966 Hepatitis B Screening 1973 Pneumococcal vaccine 65+ (1 of 1 - PCV) 2005 Zoster Vaccine (1 of 2) 2005 Abdominal Aortic Aneurysm (AAA) Screen 02/22/2020 Well Visit 65+ 02/22/2020 Fall Risk Assessment 03/21/2024 03/21/2023 Influenza Vaccine (#1) 2024 Medical Devices Implanted Type Area Legal Writing Professor Device Identifier Shelf Expiration Date Model / Serial / Lot [employer] Peripheral V[employer] 4x4in Patch Thk1.65mm [employer] Ptfe Sterile [id number] - [id number] Implanted:Qty: 1 on 03/14/2023 by Edmund Villalba MD at [facility] Other - see comments N/A: Chest [employer] [id number] 01/26/2025 [id number] / / [id number] Description:Orient used to kiera e pledgets for sutures [employer] Valve Coronary Mitral Tissue Bioprosthesis Mitris Resilia 25mm [id number] - [id number] - [id number] Implanted:Qty: 1 on 03/14/2023 by Edmund Villalba MD at [facility] N/A: Heart [employer] [id number] 01/09/2025 [id number] / [id number] / Insurance [id number] MEDICARE MEDICARE MEDICARE Advance Directives For more information, please contact: [phone] * Full Code (Latest Code Status on File) Date Activated Date Inactivated Comments 03/14/2023 3:47 PM 03/21/2023 8:50 PM Care Teams Finishing Trimmer Relationship Specialty Start Date End Date Efrain Bruno PA [address] [place], [place] [id number] PCP - General Physician Sewer And Drain Technician 07/04/21 Edmund Villalba MD [address] [place], [place] [id number] Surgeon Cardiothoracic Surgery 03/21/23 Yuri Payne Jr., MD [address] [place] [address] Consulting Physician Cardiovascular Disease 03/21/23
--- OUTSIDE RECORDS SUMMARY | 2024-10-20 10:04 | XMS_ITS | Referral Summary ---
Author Organization [facility] Address [address] [place] [address] Care Team Providers Care Breakdown Mill Operator Name Role Phone Kiana Efrain MATA Primary Care Provider Edmund Villalba MD Unavailable [phone] Elmer Wiseman MD, Yuri Bird Unavailable [phone] Encounters Date Type Department Care Team Description 08/11/2024 10:15 AM CDT Office Visit [facility] Surgery [address] [place] [phone] Edmund Villalba MD S/P MVR (mitral valve replacement) (Primary Dx) from Last 3 Months Allergies No known active allergies Medications tamsulosin [...] Multiple vessel coronary artery disease 03/16/20 14 Social History Tobacco Use Types Packs/Day Years [...] materials from doctor or pharmacy Sometimes 04/18/2023 [facility] Utilities Answer Date Recorded In the past [address] [facility] [employer], oil, or water [email or web address] threatened to shut off services in your [...] often do you attend chur ch or religion services? Never 03/15/2023 Do you belong to any clubs o r organizations such as hindu groups, unions, fraternal or athletic groups, or [...] you are drinking? Patient does not drink Frequency of Binge Drinking Not on file [...] place to sleep or slept in a alf (including now)? No 03/15/2023 Personal Safety Answer Date Recorded Have you ever been in or are you currently in a harmful physical or emotional relationship or is someone making you feel afraid or unsafe? Denies 03/17/2023 Sex and Gender Information Value Date Recorded Sex Assigned at Not on file Legal Sex Male 10:33 PM [employer] Gender Identity Not on file Sexual Orientation Not on file Last Filed Vital Signs Vital Sign Reading Time Taken Comments Blood Pressure 122/76 08/11/2024 10:40 AM CDT Pulse 56 08/11/2024 10:40 AM CDT Temperature 36.7 C (98 F) 04/18/2023 10:29 AM [employer] Respiratory Rate 16 08/11/2024 10:40 AM CDT Oxygen Saturation 96% 08/11/2024 10:40 AM CDT Inhaled Oxygen Concentration - - Weight 68.5 kg (151 lb) 08/11/2024 10:40 AM CDT Height 167.6 cm (5' 6) 08/11/2024 10:40 AM CDT Body Mass Index 24.37 08/11/2024 10:40 AM CDT Plan of Treatment Not on file Medical Devices Implanted Type Area Chain Puller Device Identifier Shelf Expiration Date Model / Serial / Lot [employer] Peripheral Vascular 4x4in Patch Thk1.65mm [place] [employer] Ptfe Sterile [id number] - [id number] Implanted:Qty: 1 on 03/14/2023 by Edmund Villalba MD at [facility] Other - see comments N/A: Chest [employer] [id number] 01/26/2025 [id number] / / [id number] Description:[place] used to kiera e pledgets for sutures [employer] Valve Coronary Mitral Tissue Bioprosthesis Mitris Resilia 25mm [id number] - [id number] - [id number] Implanted:Qty: 1 on 03/14/2023 by Edmund Villalba MD at [facility] N/A: Heart [employer] [id number] 01/09/2025 [id number] / [id number] / Insurance [facility] MEDICARE MEDICARE MEDICARE Advance Directives For more information, please contact: [phone] * Full Code (Latest Code Status on File) Date Activated Date Inactivated Comments 03/14/2023 3:47 PM 03/21/2023 8:50 PM Care Teams Breakdown Mill Operator Relationship Specialty Start Date End Date Efrain Bruno PA [address] [place] [address] PCP - General Physician Body Design Checker 07/04/21 Edmund Villalba MD [address] [place] [address] Surgeon Cardiothoracic Surgery 03/21/23 Yuri Payne Jr., MD [address] [place] [address] Consulting Physician Cardiovascular Disease 03/21/23
[2024-10-20 10:32] LABS: Hematocrit 40.8 % (37.0-46.0); Hemoglobin 12.2 g/dL (12.4-15.3); Immature Granulocyte Percent A 0.4 % (0.0-0.0); Lymphocytes Absolute Auto 1.75 K/mm3 (1.10-4.50); Mean Corpuscular HGB Conc 29.9 g/dL (32-36); Mean Corpuscular Hemoglobin 27.6 pg (27.0-31.0); Mean Corpuscular Volume 92.3 fL (78.0-102.0); Nucleated Red Blood Cells Absolute Auto 0.00 K/mm3 (0.00-0.00); Nucleated Red Blood Cells Perc 0.0 % (0-0.0); Platelet Count Result 170 K/mm3 (150-420); Red Blood Count 4.42 M/mm3 (4.70-6.10); White Blood Count 5.7 K/mm3 (4.8-10.8)
[2024-10-20 10:53] LABS: Hemoglobin A1C 6.1 % (<5.7)
[2024-10-20 11:19] LABS: Alanine Aminotransferase 30 U/L (6-50); Albumin Level 4.0 g/dL (3.5-5.1); Alkaline Phosphatase 122 U/L (38-126); Anion Gap 5 mmol/L (4-12); Aspartate Amino Transferase 45 U/L (17-59); Bilirubin,Total 0.5 mg/dL (0.2-1.3); Blood Urea Nitrogen 23 mg/dL (9-20); Calcium 8.3 mg/dL (8.4-10.2); Carbon Dioxide 29 mmol/L (22-30); Chloride 106 mmol/L (98-107); Cholesterol 130 mg/dL (0-200); Estimated Glomerular Filt Rate > 60; Glucose 113 mg/dL (65-110); HDL Direct 73 mg/dL; Osmolality Calculated 294 mOsm/kg (285-295); Potassium 4.9 mmol/L (3.4-5.0); Sodium 140 mmol/L (137-145); Total Protein 6.8 g/dL (6.3-8.2); Triglycerides 82 mg/dL (<150)
[2024-10-20 11:48] LABS: Prostate Specific Antigen 0.7 ng/mL (< OR = 4.0)
== END 2024-10-20 09:57 | disposition home or self-care (01) ==
LOC: CHSLAB 09:58
PROVIDERS: PCP Internal Medicine; Visit Provider Internal Medicine
DX: E78.5 Hyperlipidemia, unspecified (principal); R74.8 Abnormal levels of other serum enzymes; E08.42 Diabetes mellitus due to underlying condition with diabetic polyneuropathy; I25.812 Atherosclerosis of bypass graft of coronary artery of transplanted heart without angina pectoris; Z12.5 Encounter for screening for malignant neoplasm of prostate
CPT/HCPCS: 36415; 80053; 80061; 83036; 84153; 85025; G0103